=== PATIENT | female | born 1955 | race Caucasian/White ===

== ENCOUNTER → 2017-06-30 | Outpatient (CLI) | payer BC ==
--- NOTE | 2017-07-01 08:35 | PN ---
DATE OF SERVICE: 06/30/2017 A 62-year-old lady who had been followed in the sleep center for treatment of obstructive sleep apnea-hypopnea syndrome. Patient continued to use her CPAP equipment every night taking it with her ( ) or during the ( ). No problem with the use of her equipment. No problem with the mask. The patient has problem to receive her supplies. I checked her CPAP unit. CPAP pressure is 13 cm of water. Reading from the machine showed that patient is using it 100% of the time more than 4 hours. Average usage 8 hours. Leak is 18 L per minute, which is acceptable. Apnea- hypopnea index reading from the machine is only 1.4, which is perfect. [place] sleepiness scale today is 13. MEDICATIONS: Vitamin D, CQ 10, [place] and fish oil supplements. PHYSICAL EXAMINATION: During physical exam, patient in no distress. VITAL SIGNS: BP 112/63, HR 72, RR 16, height 5 feet 5 inches, weight is 251, BMI 41.6, temperature 97.4, oxygen saturation at room air 95%. Patient lost 6 pounds since titration 2 years ago. HEENT: PERRLA. EOMI. Evaluation of the oropharynx showed low position of soft palate. NECK: Supple. No JVD. Thyroid is not palpable. LUNGS: Clear to percussion and to auscultation. Good air exchange. No wheezing or rhonchi. HEART: S1, S2, regular. No murmurs, gallops or rubs. ABDOMEN: Obese. EXTREMITIES: No clubbing or cyanosis. PRESCRIPTIONIST: Awake, alert and oriented x3. Cranial nerves 2 to 7 intact. There is no fasciculation or atrophy noted. No focal deficits observed. IMPRESSION: 1. Obstructive sleep apnea-hypopnea syndrome on control with CPAP at 13 cm of water. 2. Obesity. Patient lost 6 pounds. 3. Allergy. 4. Back problem. 5. Left knee problems. PLAN: 1. Continue treatment with CPAP every night for the whole night. Patient benefiting from treatment. 2. Prescription for all necessary CPAP supplies including nasal mask, tube, filters. Possibly to change heater chamber. 3. Sleep hygiene with regular time in bed for at least 8 hours. 4. No driving if feeling any sleepiness. Thank you very much for allowing me to participate in the management of your patient. Sincerely, Mervin Connor MD, PhD, FAASM Diplomat of [place] [employer] Sleep Medicine Board by [place] [employer] [place] [employer] Elastic Yarn Twister of [facility] [place] T[place]
== END | disposition home or self-care (01) ==
LOC: SLEEP 16:05
PROVIDERS: ATTEND Internal Medicine
DX: G47.33 Obstructive sleep apnea (adult) (pediatric) (principal); E66.9 Obesity, unspecified; T78.40XA Allergy, unspecified, initial encounter

== ENCOUNTER 2017-09-05 14:59 | Emergency (ER) | payer BC ==
--- NOTE | 2017-09-05 15:46 | ED ---
General Adult HPI - General Chief complaint: Chest Pain Stated complaint: Dr Sent Time Seen by Provider: 09/05/17 15:29 Source: patient, RN notes reviewed, old records reviewed Mode of arrival: ambulatory Limitations: no limitations - History of Present Illness Initial comments: This is a 62-year-old female to the ER for evaluation. This patient presents for evaluation regarding chest pain left-sided chest pain severe back. Patient has had pain for a week. Patient denies cardiac risk factors. Patient does admit to history of travel, long drives. Patient has gone through some physical therapy to help with her pain with no significant change in her symptoms. No modifying factors for pain at home - Related Data Home Medications Medication Instructions Recorded Confirmed Cholecalciferol [Vitamin D3] 1,000 unit PO DAILY 09/05/17 09/05/17 Joint Supplement 1 tab PO DAILY 09/05/17 09/05/17 Lurong Otc 1 tab PO DAILY 09/05/17 09/05/17 Menthol Sports Rub 1 applic TOPICAL DAILY PRN 09/05/17 09/05/17 [place]-3 Fatty Acids [[place]-3] 1,000 mg PO DAILY 09/05/17 09/05/17 Potassium Plus 1 tab PO DAILY 09/05/17 09/05/17 Vitamin C/Biotin [Hair, Skin and 1 tab PO DAILY 09/05/17 09/05/17 Nails] Allergies Allergy/AdvReac Type Severity Reaction Status Date / Time diphenhydramine HCl Allergy muscle Verified 09/05/17 15:44 [From Benadryl] twitching, rash, anxious kiwi Allergy Swelling Verified 09/05/17 15:44 latex Allergy Rash/Hives Verified 09/05/17 15:44 strawberry Allergy throat Verified 09/05/17 15:44 delbert Review of Systems ROS Statement: Those systems with pertinent positive or pertinent negative responses have been documented in the HPI. ROS Other: All systems not noted in ROS Statement are negative. Past Medical History Past Medical History: Hyperlipidemia, Pneumonia, Sleep Apnea/CPAP/BIPAP Additional Past Medical History / Comment(s): hx migraine, epigastric pain History of Any Multi-Drug Resistant Organisms: None Reported Past Surgical History: Tubal Ligation, Uterine Ablation Additional Past Surgical History / Comment(s): surgery fx left tibia/fibia, plastic surgery on face, mult D & C, Past Anesthesia/Blood Transfusion Reactions: Previous Problems w/ Anesthesia Additional Past Anesthesia/Blood Transfusion Reaction / Comment(s): "a while to come out one time" Past Psychological History: No Psychological Hx Reported Smoking Status: Former smoker Past Alcohol Use History: Rare Past Drug Use History: None Reported - Past Family History Mother Family Medical History: No Reported History General Exam Limitations: no limitations General appearance: alert, in no apparent distress Head exam: Present: atraumatic, normocephalic, normal inspection Eye exam: Present: normal appearance, PERRL, EOMI. Absent: scleral icterus, conjunctival injection, periorbital swelling ENT exam: Present: normal exam, mucous membranes moist Neck exam: Present: normal inspection. Absent: tenderness, meningismus, lymphadenopathy Respiratory exam: Present: normal lung sounds bilaterally. Absent: respiratory distress, wheezes, rales, rhonchi, stridor Cardiovascular Exam: Present: regular rate, normal rhythm, normal heart sounds. Absent: systolic murmur, diastolic murmur, rubs, gallop, clicks GI/Abdominal exam: Present: soft, normal bowel sounds. Absent: distended, tenderness, guarding, rebound, rigid Extremities exam: Present: normal inspection, full ROM, normal capillary refill. Absent: tenderness, pedal edema, joint swelling, calf tenderness Back exam: Present: normal inspection Neurological exam: Present: alert, oriented X3, CN II-XII intact Psychiatric exam: Present: normal affect, normal mood Skin exam: Present: warm, dry, intact, normal color. Absent: rash Course Vital Signs 09/05/17 09/05/17 09/05/17 15:20 15:55 17:00 Temperature 97.5 F L Pulse Rate 70 70 69 Respiratory 18 16 18 Rate Blood Pressure 182/86 143/70 166/78 O2 Sat by Pulse 97 96 94 L Oximetry - Reevaluation(s) Reevaluation #1: 09/05/17 17:34 Discussed results of patient's findings with patient, questions are answered Medical Decision Making - Medical Decision Making 62. ER for evaluation of chest pain. Back pain severe stabbing back pain. CT is negative. EKG is normal, Troponin Level is normal patient can be discharged home - Lab Data Result diagrams: 09/05/17 15:57 09/05/17 15:57 Lab Results 10/09/05/17 09/05/17 Range/Units 15:57 15:57 15:57 WBC (3.8-10.6) k/uL RBC (3.80-5.40) m/uL Hgb (11.4-16.0) gm/dL Hct (34.0-46.0) % MCV (80.0-100.0) fL MCH (25.0-35.0) pg MCHC (31.0-37.0) g/dL RDW (11.5-15.5) % Plt Count (150-450) k/uL Neutrophils % % Lymphocytes % % Monocytes % % Eosinophils % % Basophils % % Neutrophils # (1.3-7.7) k/uL Lymphocytes # (1.0-4.8) k/uL Monocytes # (0-1.0) k/uL Eosinophils # (0-0.7) k/uL Basophils # (0-0.2) k/uL PT 10.4 (9.0-12.0) sec INR 1.0 (<1.2) APTT 27.6 (22.0-30.0) sec D-Dimer 0.42 (<0.60) mg/L FEU Sodium 141 (137-145) mmol/L Potassium 4.6 (3.5-5.1) mmol/L Chloride 105 (98-107) mmol/L Carbon Dioxide 23 (22-30) mmol/L Anion Gap 13 mmol/L BUN 13 (7-17) mg/dL Creatinine 0.84 (0.52-1.04) mg/dL Est GFR (MDRD) Af Amer >60 (>60 ml/min/1.73 sqM) Est GFR (MDRD) Non-Af >60 (>60 ml/min/1.73 sqM) Glucose 85 (74-99) mg/dL Calcium 9.2 (8.4-10.2) mg/dL Magnesium 1.9 (1.6-2.3) mg/dL Total Bilirubin 0.6 (0.2-1.3) mg/dL AST 41 H (14-36) U/L ALT 42 (9-52) U/L Alkaline Phosphatase 75 (38-126) U/L Total Creatine Kinase (30-135) U/L CK-MB (CK-2) (0.0-2.4) ng/mL CK-MB (CK-2) Rel Index Troponin I (0.000-0.034) ng/mL NT-Pro-B Natriuret Pep 19 pg/mL Total Protein 7.8 (6.3-8.2) g/dL Albumin 4.4 (3.5-5.0) g/dL Lipase 105 (23-300) U/L 09/05/17 09/05/17 Range/Units 15:57 15:57 WBC 9.7 (3.8-10.6) k/uL RBC 5.09 (3.80-5.40) m/uL Hgb 14.6 (11.4-16.0) gm/dL Hct 45.0 (34.0-46.0) % MCV 88.5 (80.0-100.0) fL MCH 28.7 (25.0-35.0) pg MCHC 32.4 (31.0-37.0) g/dL RDW 12.9 (11.5-15.5) % Plt Count 305 (150-450) k/uL Neutrophils % 52 % Lymphocytes % 35 % Monocytes % 7 % Eosinophils % 3 % Basophils % 1 % Neutrophils # 5.1 (1.3-7.7) k/uL Lymphocytes # 3.4 (1.0-4.8) k/uL Monocytes # 0.7 (0-1.0) k/uL Eosinophils # 0.3 (0-0.7) k/uL Basophils # 0.1 (0-0.2) k/uL PT (9.0-12.0) sec INR (<1.2) APTT (22.0-30.0) sec D-Dimer (<0.60) mg/L FEU Sodium (137-145) mmol/L Potassium (3.5-5.1) mmol/L Chloride (98-107) mmol/L Carbon Dioxide (22-30) mmol/L Anion Gap mmol/L BUN (7-17) mg/dL Creatinine (0.52-1.04) mg/dL Est GFR (MDRD) Af Amer (>60 ml/min/1.73 sqM) Est GFR (MDRD) Non-Af (>60 ml/min/1.73 sqM) Glucose (74-99) mg/dL Calcium (8.4-10.2) mg/dL Magnesium (1.6-2.3) mg/dL Total Bilirubin (0.2-1.3) mg/dL AST (14-36) U/L ALT (9-52) U/L Alkaline Phosphatase (38-126) U/L Total Creatine Kinase 334 H (30-135) U/L CK-MB (CK-2) 2.9 H* (0.0-2.4) ng/mL CK-MB (CK-2) Rel Index 0.9 Troponin I <0.012 (0.000-0.034) ng/mL NT-Pro-B Natriuret Pep pg/mL Total Protein (6.3-8.2) g/dL Albumin (3.5-5.0) g/dL Lipase (23-300) U/L - Radiology Data Radiology results: report reviewed (CTA chest was negative for acute disease), image reviewed Disposition Clinical Impression: Chest pain Disposition: HOME SELF-CARE Condition: Good Instructions: Chest Pain (ED) Referrals: Brad Maciel MD [Primary Care Provider] - 1-2 days
[2017-09-05] MEDS ORDERED: RX INFO: IV CONTRAST WAS GIVEN 1 EACH MISC MISCELLANE PRN (16:00)
[2017-09-05 16:07] LABS: Basophils # (A) 0.1 k/uL (0-0.2); Basophils % (A) 1 %; CH 28.7; CHCM 32.5; Eosinophils # (A) 0.3 k/uL (0-0.7); Eosinophils % (A) 3 %; HDW 2.33; HGB 14.6 gm/dL (11.4-16.0); Luc # (Auto) 0.18; Luc % (Auto) 2; Lymphocytes # (A) 3.4 k/uL (1.0-4.8); Lymphocytes % (A) 35 %; MCH 28.7 pg (25.0-35.0); MCHC 32.4 g/dL (31.0-37.0); MCV 88.5 fL (80.0-100.0); Mean Platelet Volume 7.4; Monocytes # (A) 0.7 k/uL (0-1.0); Monocytes % (A) 7 %; Neutrophils # (A) 5.1 k/uL (1.3-7.7); Neutrophils % (A) 52 %; RBC 5.09 m/uL (3.80-5.40); RDW 12.9 % (11.5-15.5); WBC 9.7 k/uL (3.8-10.6); WBC (Perox) 9.18
--- NOTE | 2017-09-05 16:10 | XR ---
EXAMINATION TYPE: XR chest 2V DATE OF EXAM: 09/05/2017 COMPARISON: NONE HISTORY: Chest pain, history of pneumonia. TECHNIQUE: Frontal and lateral views of the chest are obtained. FINDINGS: There is chronic parenchymal change without suspicious focal air space opacity, pleural ef fusion, or pneumothorax seen. The cardiac silhouette size is within normal limits. The osseous str uctures are somewhat demineralized. IMPRESSION: No acute cardiopulmonary process.
[2017-09-05 16:16] LABS: ALT 42 U/L (9-52); AST 41 U/L (14-36); Alkaline Phosphatase 75 U/L (38-126); Anion Gap 13 mmol/L; Blood Urea Nitrogen 13 mg/dL (7-17); Calcium 9.2 mg/dL (8.4-10.2); Carbon Dioxide 23 mmol/L (22-30); Chloride 105 mmol/L (98-107); Glucose 85 mg/dL (74-99); Magnesium 1.9 mg/dL (1.6-2.3); Non-African American GFR(MDRD) >60 (>60 ml/min/1.73 sqM); Potassium 4.6 mmol/L (3.5-5.1); Sodium 141 mmol/L (137-145); Total Bilirubin 0.6 mg/dL (0.2-1.3); Total Protein 7.8 g/dL (6.3-8.2)
[2017-09-05 16:21] LABS: Partial Thromboplastin Time 27.6 sec (22.0-30.0); Prothrombin Time 10.4 sec (9.0-12.0)
[2017-09-05 16:36] LABS: Creatine Kinase 334 U/L (30-135)
[2017-09-05 16:50] LABS: Troponin I <0.012 ng/mL (0.000-0.034)
[2017-09-05 16:57] LABS: Creatine Kinase MB 2.9 ng/mL (0.0-2.4)
--- NOTE | 2017-09-05 17:00 | CT ---
EXAMINATION TYPE: CT angio chest DATE OF EXAM: 09/05/2017 4:38 PM COMPARISON: NONE HISTORY: Left side chest pain x1 week. CT DLP: 642 mGycm Automated exposure control for dose reduction was used. CONTRAST: CTA scan of the thorax is performed with IV Contrast, patient injected with 80 mL of Omnipaque 350, p ulmonary embolism protocol. There are 3-D post processed images.. FINDINGS: There is minimal atheromatous change in the thoracic aorta. There is no evidence of aneurysm or disse ction. The lungs are clear of consolidation. There is no evidence of a pulmonary mass. There is no pleural e ffusion. I see no filling defects in the pulmonary arteries. There is no mediastinal adenopathy. Ther e is a 1.5 cm right bronchial lymph node. There is no pericardial effusion. There is no pleural effus ion. There is hypertrophic spurring in the thoracic spine. IMPRESSION: NO EVIDENCE OF PULMONARY EMBOLISM. SINGLE RIGHT BRONCHIAL LYMPH NODE OF UNCERTAIN SIGNIFICANCE. SPOND YLOTIC CHANGES IN THE THORACIC SPINE.
[2017-09-05 17:09] VITALS: RESP 18
[2017-09-05] MEDS ORDERED: IBUPROFEN 800 MG TAB PO STA (17:11)
[2017-09-05 17:48] VITALS: BP 171/95; PULSE 71; TEMP 97.8
== END 2017-09-05 17:48 | disposition home or self-care (01) ==
LOC: EC 14:59
DX: R07.9 Chest pain, unspecified (principal); M54.9 Dorsalgia, unspecified; Z87.891 Personal history of nicotine dependence; Z79.899 Other long term (current) drug therapy; Z88.8 Allergy status to other drugs, medicaments and biological substances; Z91.018 Allergy to other foods; Z91.040 Latex allergy status
CPT/HCPCS: 99285; 36415; 93005; 85379; 83880; 80053; 82550; 82553; 83690; 83735; 84484; 85025; 85610; 85730; 71020; 71275; Q9967

== ENCOUNTER → 2018-07-19 | Outpatient (CLI) | payer BC ==
--- NOTE | 2018-07-20 14:06 | EST ---
EXERCISE STRESS AGE: 63 SEX: F HT: 55" WT: 255 PROTOCOL: Moses Stress Test STAGE: I DURATION OF EXERCISE: 4:35 HEART RATE REST: 94 BLOOD PRESSURE REST: 148/75 MAXIMUM HEART RATE ACHIEVED: 145 MAXIMUM BLOOD PRESSURE: 239/82 85% MPHR: 134 100% MPHR: 158 METS: 4.4 INDICATIONS: Chest pain. CLINICAL INFORMATION: Patient was exercised for a total period of 4 minutes and 30 seconds. Peak heart rate of 145 was achieved. Maximum blood pressure of 239/82 mmHg is noted. Resting EKG shows normal sinus rhythm with normal CO interval and QRS duration and normal ST-T waves. No ST-segment depression suggestive of ischemia is noted. FINAL IMPRESSION: 1. This exercise test is not suggestive of ischemia. 2. Patient's exercise tolerance is normal. 3. Patient developed systolic hypertension during exercise. MMODL / IJN: [id number] /
== END | disposition home or self-care (01) ==
LOC: RADNMMAIN 11:09
PROVIDERS: ATTEND Family Medicine
DX: I10 Essential (primary) hypertension (principal); R07.89 Other chest pain
CPT/HCPCS: 93017

== ENCOUNTER → 2018-08-10 | Outpatient (CLI) | payer BC ==
--- NOTE | 2018-08-10 11:36 | SFUN ---
SLEEP CENTER FOLLOW UP NOTE DATE OF SERVICE: 08/10/2018 This 63-year-old lady has been followed in sleep center for treatment of obstructive sleep apnea-hypopnea syndrome. Patient is successfully continuing to use her equipment every night. According to her, she cannot sleep without CPAP machine. She does have some problems related to her nasal mask. Sometimes she has a leak from the nasal mask to her eyes area and this is Mirage Standard FX mask. I checked her CPAP unit. CPAP pressure is 13 cm of water. Usage is 100% of the time more than 4 hours. Average usage is 7.9 hours. Leak is only 11 L/minute, which is normal. Apnea-hypopnea index only 0.9, which is perfect. [place] Sleepiness Scale is 8, which is in normal range. MEDICATIONS: Vitamin D, [place] fish oil. Not any prescribed medications. PHYSICAL EXAMINATION: Patient in no distress. VITAL SIGNS: BP 108/70, HR 72, RR 14, height 5 feet 4-1/2 inches, weight 257.4, body mass index 44.1, temperature 98.6, oxygen saturation room air 97%. HEENT: PERRLA, EOMI. Oropharynx extremely low position of soft palate. NECK: Supple, no JVD. Thyroid is not palpable. LUNGS: Clear to percussion and to auscultation. Good air exchange. No wheezing or rhonchi. HEART: S1, S2 regular. No murmurs, gallops, or rubs. ABDOMEN: Obese. EXTREMITIES: No clubbing or cyanosis. PRIVATE INVESTIGATOR SURVEILLANCE: Awake, alert, and oriented X3. Cranial nerves 2 to 7 intact. There is no fasciculation or atrophy. noted. No focal deficits observed. IMPRESSION: 1. Obstructive sleep apnea-hypopnea syndrome, on full control with CPAP with a pressure of 13 cm of water. Patient demonstrated 100% compliance with treatment benefitting from treatment. 2. Obesity. 3. Allergy. 4. Back problems. 5. Left knee problems. PLAN: 1. patient with different nasal mask AirFit N20 medium size and this looks like this mask fit patient well. I will write prescription for this type of mask. 2. Patient will continue to use her CPAP equipment every night for the whole night. 3. Losing weight. 4. Sleep hygiene with regular time in bed for at least 8 hours. 5. No driving if feeling any sleepiness. 6. Prescription for all necessary CPAP supplies. We will maintain. 7. Follow-up visit in one year or earlier if patient has any problems. Thank you very much for allowing me to participate in management of your patient. Sincerely, Mervin Connor MD, PhD, FAASM Diplomat of [place] [employer] [place] [employer] Rn Patient Care of [facility] [place] MMODL / IJN: [id number] /
== END | disposition home or self-care (01) ==
LOC: SLEEP 10:46
PROVIDERS: ATTEND Internal Medicine
DX: G47.33 Obstructive sleep apnea (adult) (pediatric) (principal); E66.9 Obesity, unspecified; T78.40XA Allergy, unspecified, initial encounter; M53.9 Dorsopathy, unspecified; M25.862 Other specified joint disorders, left knee; Z99.89 Dependence on other enabling machines and devices; Z68.41 Body mass index [BMI] 40.0-44.9, adult

== ENCOUNTER → 2019-06-28 | Outpatient (CLI) | payer BC ==
--- NOTE | 2019-06-28 14:43 | SFUN ---
SLEEP CENTER FOLLOW UP NOTE DATE OF SERVICE: 06/28/2019 A 64-year-old lady who has been followed in the Sleep Center for treatment of obstructive sleep apnea-hypopnea syndrome. Patient continued to use her CPAP equipment every night for the whole night. No snoring with the machine. [place] Sleepiness Scale today is increased to 16. During the last year, she had a lot of stress related to health and her family with problems in her family, I checked her CPAP unit, usage is every night and 29/30 nights for last month for more than 4 hours with average usage is 7.7 hours per night. CPAP pressure is 13 cm of water. Leak is 12 L/minute, which is borderline. Apnea-hypopnea index 21.1, which is absolutely normal. MEDICATIONS: Vitamin D, fish oil. PHYSICAL EXAM: Patient in no distress. BP 142/78, HR 78, RR 16, height 5, 4-1/2, weight 261. For the last year, patient lost about 20 pounds but then again increase her weight back, presently 4 pounds more. Temperature 97.4, oxygen, saturation at room air 94%. OROPHARYNX: Extremely low position of soft palate. Mallampati 4. ABDOMEN: Obese. Neck Supple, no JVD. Thyroid is not palpable. LUNGS Clear to percussion and to auscultation. Good air exchange. No wheezing or rhonchi. HEART S1, S2 regular. No murmurs, gallops, or rubs. EXTREMITIES No clubbing or cyanosis. ROADWAY DESIGNER Awake, alert, and oriented X3. Cranial nerves 2 to 7 intact. There is no fasciculation or atrophy. noted. No focal deficits observed. IMPRESSION: 1. Obstructive sleep apnea-hypopnea syndrome, on full control with CPAP with a pressure of 13 cm of water. Patient demonstrated 100% compliance with treatment, benefitting from treatment. 2. Back problems. 3. Obesity. 4. Allergy. 5. Left knee problems. PLAN: 1. Patient will continue to use CPAP equipment every night for the whole night. 2. I will maintain all necessary prescriptions for mask, tube, filters. 3. Losing weight. 4. Sleep hygiene with regular time in bed for at least 8 hours. 5. No driving if feeling sleepiness. 6. Followup visit in 1 year or earlier if patient has any problems. Thank you very much for allowing me to participate in the management of the patient. Sincerely, Mervin Connor MD, PhD, FAASM Diplomat of [place] [employer] [place] [employer] Math And Science Instructor of [facility] [place] MMMADELYN / STEPHANIE: [id number] /
== END | disposition home or self-care (01) ==
LOC: SLEEP 13:50
PROVIDERS: ATTEND Internal Medicine
DX: G47.33 Obstructive sleep apnea (adult) (pediatric) (principal); M53.9 Dorsopathy, unspecified; E66.9 Obesity, unspecified; T78.40XA Allergy, unspecified, initial encounter; M25.862 Other specified joint disorders, left knee; Z99.89 Dependence on other enabling machines and devices

== ENCOUNTER → 2020-07-23 | Outpatient (CLI) | payer BC ==
--- NOTE | 2020-07-23 11:59 | US ---
EXAMINATION TYPE: US pelvis complete transvag DATE OF EXAM: 07/23/2020 COMPARISON: NONE CLINICAL HISTORY: 65-year-old female R10.2 Pelvic and Perineal Pain. Generalized pain TECHNIQUE: Transabdominal sonographic images of the pelvis were acquired. Transvaginal sonographic i mages were medically necessary to better assess the following anatomy: Ovaries, endometrium Date of LMP: RESIDENTIAL CARPENTER, FINDINGS: EXAM MEASUREMENTS: Uterus: 7.3 x 4.8 x 3.4 cm Endometrial Stripe: 0.4 cm Right Ovary: 3.3 x 1.7 x 2.2 cm 1. Uterus: Retroverted with Heterogenous myometrium. Left focal lesions seen. 1- Left- 3.7 x 4.8 x 4.1 cm 2- left fundal - 1.9 x 2.7 x 1.9 cm 2. Endometrium: Mild fluid within the uterine cavity. The stripe is acceptable given postmenopausal status. 3. Right Ovary: Cystic lesion seen -3.3 x 1.8 x 2.1 with small possible cystic lesion seen within - 1.0 x 1.0 x 1.1 cm 4. Left Ovary: Obscured by overlying bowel gas 5. Bilateral Adnexa: Some fluid-filled peristalsing bowel seen 6. Posterior cul-de-sac: no free fluid Cervix- nabothian cysts IMPRESSION: 1. Retroverted and heterogeneous uterus, likely diffuse small fibroid change. Focal fibroids on the l eft measure up to 4.8 and 2.7 cm. 2. Mild fluid within the uterine cavity. However, the endometrial stripe is normal for postmenopausal female for mellitus. Consider follow-up in 3 months to reassess. 3. Possible 3.3 cm complex cystic lesion of the right ovary. This should also be reassessed at follow -up. If the finding persists, MRI may be needed to better characterize. 4. Unable to visualize the left ovary.
== END | disposition home or self-care (01) ==
LOC: RADUSWWP 10:51
PROVIDERS: ATTEND Family Medicine
DX: D25.9 Leiomyoma of uterus, unspecified (principal); N85.4 Malposition of uterus
CPT/HCPCS: 76830; 76856

== ENCOUNTER → 2021-03-19 | Outpatient (CLI) | payer BC ==
--- NOTE | 2021-04-10 06:20 | SFUN ---
SLEEP CENTER FOLLOW UP NOTE DATE OF SERVICE: 04/08/2021 HISTORY OF PRESENT ILLNESS: This 65-year-old lady has been followed in the Sleep Center for treatment of obstructive sleep apnea-hypopnea syndrome. Patient continued to use her CPAP equipment every night for the whole night. No snoring with the machine. [place] Sleepiness Scale is slightly increased to 11. I checked CPAP unit. The CPAP pressure is 13 cm of water. Usage is 30/30 nights, average 8 hours per night. Leak is 18 L/minute. Apnea-hypopnea index is 1.1. The patient is using an AirFit and 20 medium mask. PHYSICAL EXAMINATION: GENERAL: Patient in no distress. VITAL SIGNS: BP 126/76, HR 68, RR 16, height 5 feet 4-1/2 inches, weight 254.6 pounds, temperature 96.4, oxygen saturation on room air 97%. HEENT: PERRLA, EOMI, evaluation of oropharynx showed tongue protrudes midline. Extremely low position of soft palate, Mallampati IV. NECK: Supple, no JVD. Thyroid is not palpable. LUNGS: Clear to percussion and to auscultation. Good air exchange. No wheezing or rhonchi. HEART: S1, S2 regular. No murmurs, gallops, or rubs. ABDOMEN: Obese, soft and nontender. Bowel sounds are present. No organomegaly appreciated. EXTREMITIES: No clubbing or cyanosis. CROP NUTRITION SCIENTIST: Awake, alert, and oriented X3. Cranial nerves 2 to 7 intact. There is no fasciculation or atrophy. noted. No focal deficits observed. IMPRESSION: 1. Obstructive sleep apnea-hypopnea syndrome. Patient demonstrated 100% compliance with treatment and benefitting from treatment. 2. Patient has some problems with the CPAP unit and the unit needs to be replaced. 3. Back problems. 4. Obesity. 5. Allergies. 6. Left knee problems. PLAN: 1. Prescription to replaced CPAP unit to unit with automatic regimen. Range of the pressure 5-15. 2. Patient will continue to use PAP equipment every night for the whole night. 3. Sleep hygiene with regular time in bed for at least 7-1/2 to 8 hours. 4. Precautions related to driving. No driving if feeling sleepiness. 5. I will maintain all necessary prescription for PAP supplies including mask, tube, filters. 6. Watching weight. 7. Follow-up visit in 6 months or earlier if patient has any problems. 8. Followup visit after the patient gets her new machine to evaluate her clinical response on treatment, compliance with treatment and make any necessary adjustments related to mask fitting, pressure and humidification. I spent with the patient and documentation more than 30 minutes. Thank you very much for allowing me to participate in management of your patient. Sincerely, Mervin Connor MD, PhD, FAASM Diplomat of [place] [employer] [place] [employer] Correctional Supervisor of [facility] [place] MMODL / IJN: [id number] /
== END ==
LOC: SLEEP 16:43
PROVIDERS: ATTEND Internal Medicine
DX: G47.33 Obstructive sleep apnea (adult) (pediatric) (principal); M53.80 Other specified dorsopathies, site unspecified; E66.9 Obesity, unspecified; T78.40XA Allergy, unspecified, initial encounter; Z99.81 Dependence on supplemental oxygen; Z91.040 Latex allergy status; Z91.018 Allergy to other foods; Z88.8 Allergy status to other drugs, medicaments and biological substances; Z87.891 Personal history of nicotine dependence

== ENCOUNTER → 2021-05-20 | Outpatient (CLI) | payer BC ==
--- NOTE | 2021-05-20 21:03 | SFUN ---
SLEEP CENTER FOLLOW UP NOTE DATE OF SERVICE: 05/20/2021 65-year-old lady has been followed in Sleep Center for treatment of obstructive sleep apnea-hypopnea syndrome. I saw patient about 2 months ago, at that time, it was recommended to replace CPAP unit, but CPAP unit was not replaced because of some issues related to changing of her insurance. Patient continued to use her CPAP equipment every night for the whole night. [place] Sleepiness Scale is 11 today, which is slightly increased. I checked her CPAP unit. Cover for air filter is broken. The machine is old. CPAP pressure is 13 cm of water, usage 30/30 nights for more than 4 hours, average 8.6 hours per night. Leak is borderline 17 L/minute. Apnea-hypopnea index was 1.3, which is perfect. The patient is using AirFit N20 nasal mask. MEDICATIONS: None. PHYSICAL EXAM: BP 155/105, HR 90, RR 15, height 5 feet 7 inches, weight 257, body mass index 44.1, temperature 98.6, oxygen saturation at room air 96%. Oropharynx extremely low position of soft palate. Mallampati IV. NECK: Supple, no JVD. Thyroid is not palpable. LUNGS: Clear to percussion and to auscultation. Good air exchange. No wheezing or rhonchi. HEART: S1, S2 regular. No murmurs, gallops, or rubs. ABDOMEN: Obese. Soft and nontender. Bowel sounds are present. No organomegaly appreciated. EXTREMITIES: No clubbing or cyanosis. PROPERTY HANDLER: Awake, alert, and oriented X3. Cranial nerves 2 to 7 intact. There is no fasciculation or atrophy. noted. No focal deficits observed. IMPRESSION: 1. Obstructive sleep apnea-hypopnea syndrome. The patient demonstrated 100% compliance with treatment benefitting from treatment. CPAP unit is old. Air filter cover broken. Some part of machine wall is broken. 2. Obesity. 3. Back problems. 4. Allergies. 5. Left knee problems. PLAN: 1. Replace CPAP unit. 2. Patient will continue to use PAP equipment every night for the whole night. 3. Sleep hygiene with regular time in bed for at least 7-1/2 to 8 hours. 4. Precautions related to driving. No driving if feeling sleepiness. 5. I will maintain all necessary prescription for PAP supplies including mask, tube, filters. 6. Watching weight. 7. Follow-up visit in 30-90 days after patient will receive new CPAP machine to evaluate clinical response on treatment, compliance with treatment and make any necessary adjustments related to mask, fitting pressure and humidification. Thank you very much for allowing me to participate in management of your patient. Sincerely, Mervin Connor MD, PhD, FAASM Diplomat of [employer] Sleep Medicine Board of [employer] of [employer] Medicine Fire Hydrant Mechanic of [facility] [place]. MMODL / IJN: [id number] /
== END ==
LOC: SLEEP 13:06
PROVIDERS: ATTEND Internal Medicine
DX: G47.33 Obstructive sleep apnea (adult) (pediatric) (principal); E66.9 Obesity, unspecified; T78.40XA Allergy, unspecified, initial encounter; M53.80 Other specified dorsopathies, site unspecified; M25.869 Other specified joint disorders, unspecified knee; Z68.41 Body mass index [BMI] 40.0-44.9, adult; Z99.89 Dependence on other enabling machines and devices

== ENCOUNTER → 2021-10-22 | Outpatient (CLI) | payer BC ==
--- NOTE | 2021-10-22 11:52 | SFUN ---
SLEEP CENTER FOLLOW UP NOTE DATE OF SERVICE: 10/22/2021 66-year-old lady has been followed in Sleep Center for treatment of obstructive sleep apnea-hypopnea syndrome. The patient recently received new CPAP unit and this is appointment to check her compliance with therapy. Patient continues to use her CPAP equipment every night for the whole night. Cannot sleep without machine. No snoring with the machine. [place] Sleepiness Scale today is 9 which is in normal range. Reading from the machine showed that she is using it every night around 5 to 6 hours per night and apnea-hypopnea index is totally normal at 0.5. The patient received new ResMed unit and she likes it. The patient did not receive heated tube using regular tube at the present time. MEDICATIONS: None. PHYSICAL EXAMINATION: GENERAL: Patient in no distress. BP 152/69, HR 77, RR 15, height 5 feet 4-1/4 inches, weight 270.6 pounds, body mass index 46. Temperature 97, oxygen saturation at room air 96%. Oropharynx: Extremely low position of soft palate, Mallampati 4. NECK: Supple, no JVD. Thyroid is not palpable. LUNGS: Clear to percussion and to auscultation. Good air exchange. No wheezing or rhonchi. HEART: S1, S2 regular. No murmurs, gallops, or rubs. ABDOMEN: Obese. Soft and nontender. Bowel sounds are present. No organomegaly appreciated. EXTREMITIES: No clubbing or cyanosis. REGIONAL BUSINESS DEVELOPMENT MANAGER: Awake, alert, and oriented X3. Cranial nerves 2 to 7 intact. There is no fasciculation or atrophy. noted. No focal deficits observed. IMPRESSION: 1. Obstructive sleep apnea-hypopnea syndrome. Patient demonstrated great compliance while using her new CPAP unit, benefitting from treatment. 2. Obesity. 3. Back problems. 4. Left knee problems. 5. Allergies. PLAN: 1. Patient will continue to use PAP equipment every night for the whole night. 2. Sleep hygiene with regular time in bed for at least 7-1/2 to 8 hours. 3. Precautions related to driving. No driving if feeling sleepiness. 4. I will maintain all necessary prescription for PAP supplies including mask, tube, filters. 5. Watching weight. 6. Follow-up visit in 6 months or earlier if patient has any problems. Thank you very much for allowing me to participate in management of your patient. Sincerely, Mervin Stefadu, MD, PhD, FAASM Diplomat of [employer] Sleep Medicine Board of [employer] of Internal Medicine Financial Internship of [facility] [place] SARAH / STEPHANIE: [id number] /
== END ==
LOC: SLEEP 10:15
PROVIDERS: ATTEND Internal Medicine
DX: G47.33 Obstructive sleep apnea (adult) (pediatric) (principal); E66.9 Obesity, unspecified; M53.80 Other specified dorsopathies, site unspecified; M53.82 Other specified dorsopathies, cervical region; T78.40XA Allergy, unspecified, initial encounter; Z99.89 Dependence on other enabling machines and devices; Z68.42 Body mass index [BMI] 45.0-49.9, adult; Z91.040 Latex allergy status; Z91.018 Allergy to other foods; Z88.8 Allergy status to other drugs, medicaments and biological substances; Z87.891 Personal history of nicotine dependence

== ENCOUNTER → 2023-02-23 | Outpatient (CLI) | payer BC, MEDICARE ==
--- NOTE | 2023-02-23 14:01 | P.PN ---
Subjective DATE: 02/23/2023 FOLLOW UP VISIT. Patient with obstructive sleep apnea hypopnea syndrome return to sleep center for follow-up visit. Information from previous visit have been reviewed. Patient is using PAP equipment every night for the whole night, getting PAP supplies in time. Patient did had some problems with her CPAP, with the d iscomfort in nature nose and to somebody discharges from the nose. Depression CPAP unit was decreased to 8 cm of water and with that regimen of pressure patient feels well. The patient does not have significant problems with the mask, PAP unit and humidification. [place] sleepiness scale is 2, which is normal. I checked information from PAP unit. PAP unit pressure 8 cm H2O. Usage is 100 % for more then 4 hours, average 7.25 hours per night. Leak is 6.8 l/m, which is in acceptable range. Apnea Hypopnea Index is 2.1, which is normal. MEDICATIONS: None During physical exam: GENERAL: A pleasant patient without any distress. VITAL SIGNS: BP 125/78, HR 76, RR 12 , weight 214, temperature 98.6, oxygen saturation at room air 97 % . HEENT: PERRLA, EOMI.low position of soft palate, Mallapati 4 . NECK: Supple. No JVD. LUNGS: Clear to percussion and to auscultation. Good air exchange. No wheezing or rhonchi. HEART: S1, S2 regular. ABDOMEN: Soft and nontender. EXTREMITIES: No clubbing or cyanosis. PARCEL POST CARRIER: Awake, alert, and oriented x3. No focal deficit. Impressions: 1. Obstructive sleep apnea-hypopnea syndrome. Patient demonstrated great compliance with treatment, benefiting from treatment. 2. Mild obesity body mass index 36.7, patient lost 55 pounds since previous visit. 3. Back problems. 4. Left knee problems. 5. ALLERGIES. Plan: 1. Continue using PAP equipment every night for the whole night. 2. To change air filter at least 1-2 times per month. 3. PAP unit should stay lower then position of the head. 4. Advised patient to remove all remaining water from humidifier canister daily and make it dry after each usage. Refill canister with fresh distilled water before each usage. 5. Sleep hygiene with regular time in bed for at least 8 hours. 6. Precautions related to driving. No driving if feel any sleepiness. 7. I will maintain prescription for PAP supplies including mask, tube, filters. 8. Follow up visit in 6 months or earlier if patient has any problems. 9. Watching and continue losing weight. Thank you very much for allowing me to participate in the management of your patient. Mervin Connor MD, PhD, FAASM. Diplomat of [employer] Medicine, Sleep Medicine Board by [employer] Medicine Industrial Trainer of [facility] [place]
== END ==
LOC: SLEEP 13:27
PROVIDERS: ATTEND Internal Medicine
DX: G47.33 Obstructive sleep apnea (adult) (pediatric) (principal); E66.9 Obesity, unspecified; Z68.36 Body mass index [BMI] 36.0-36.9, adult; M25.562 Pain in left knee; M54.9 Dorsalgia, unspecified; Z99.89 Dependence on other enabling machines and devices; Z91.018 Allergy to other foods; Z91.040 Latex allergy status; Z88.8 Allergy status to other drugs, medicaments and biological substances; Z87.891 Personal history of nicotine dependence
CPT/HCPCS: 99212

== ENCOUNTER → 2023-09-14 | Outpatient (CLI) | payer MEDICARE ==
--- NOTE | 2023-09-14 14:46 | P.PN ---
Subjective DATE: 09/14/2023 FOLLOW UP VISIT. Patient with obstructive sleep apnea hypopnea syndrome return to sleep center for follow-up visit. Information from previous visit have been reviewed. Patient is using PAP equipment every night for the whole night, getting PAP supplies in time. The patient does not have significant problems with the mask, PAP unit and humidification. [place] sleepiness scale is 7, which is normal. I checked information from PAP unit and explain it to the patient in details. PAP unit pressure 8 cm H2O. Usage is 100 % for more then 4 hours, average 8 hours per night. Leak is 4.4 l/m, which is in acceptable range. Apnea Hypopnea Index is 1.0, which is normal. MEDICATIONS:1.. Flonase 2.. Zyrtec During physical exam: GENERAL: A pleasant patient without any distress. VITAL SIGNS: BP 135/84, HR 76, RR 16, weight 227.2, temperature 97.3, oxygen saturation at room air 98 % . HEENT: PERRLA, EOMI.low position of soft palate, Mallapati 4 . NECK: Supple. No JVD. LUNGS: Clear to percussion and to auscultation. Good air exchange. No wheezing or rhonchi. HEART: S1, S2 regular. ABDOMEN: Soft and nontender. Slightly obese EXTREMITIES: No clubbing or cyanosis. NEONATAL SPECIALIST: Awake, alert, and oriented x3. No focal deficit. Impressions: 1. Obstructive sleep apnea-hypopnea syndrome. Patient demonstrated great compliance with treatment, benefiting from treatment. 2. Mild obesity, patient increased to wait on 15 pounds comparing to previous visit. 3. Back problems. 4. Status post left knee replacement. 5. Status post right hip replacement. Plan: 1. Continue using PAP equipment every night for the whole night. 2. To change air filter at least 1-2 times per month. 3. PAP unit should stay lower then position of the head. 4. Advised patient to remove all remaining water from humidifier canister daily and make it dry after each usage. Refill canister with fresh distilled water before each usage. 5. Sleep hygiene with regular time in bed for at least 8 hours. 6. Precautions related to driving. No driving if feel any sleepiness. 7. I will maintain prescription for PAP supplies including mask, tube, filters. 8. Watching and losing weight. 9. Follow up visit in 6 months or earlier if patient has any problems. Thank you very much for allowing me to participate in the management of your patient. Mervin Connor MD, PhD, FAASM. Diplomat of [place] [employer] Sleep Medicine, Sleep Medicine Board by [place] [employer] of Internal Medicine Rn X Ray of [facility] [place]
== END ==
LOC: 3 N SLEEP 13:50
PROVIDERS: ATTEND Internal Medicine
DX: G47.33 Obstructive sleep apnea (adult) (pediatric) (principal); E66.9 Obesity, unspecified; M51.9 Unspecified thoracic, thoracolumbar and lumbosacral intervertebral disc disorder; Z96.652 Presence of left artificial knee joint; Z96.641 Presence of right artificial hip joint; Z99.89 Dependence on other enabling machines and devices; Z91.018 Allergy to other foods; Z91.040 Latex allergy status; Z88.8 Allergy status to other drugs, medicaments and biological substances; Z87.891 Personal history of nicotine dependence
CPT/HCPCS: 99212

== ENCOUNTER → 2024-04-04 | Outpatient (CLI) | payer MEDICARE ==
[2024-04-04 13:39] VITALS: BP 155/77; PULSE 78; RESP 16; TEMP 98.9
--- NOTE | 2024-04-04 13:52 | P.PROGSL ---
Subjective DATE: 04/04/2024 FOLLOW UP VISIT. Patient with obstructive sleep apnea hypopnea syndrome return to sleep center for follow-up visit. Information from previous visit have been reviewed. Patient is using PAP equipment every night for the whole night, getting PAP supplies in time. The patient does not have significant problems with the mask, PAP unit and humidification. [place] sleepiness scale is 6, which is normal. I checked information from PAP unit. PAP unit pressure 8 cm H2O. Usage is 97% for more then 4 hours, average 9.8 hours per night. Leak is 6.0 l/m, which is in acceptable range. Apnea Hypopnea Index is 2.1, which is normal. MEDICATIONS: Please see below During physical exam: GENERAL: A pleasant patient without any distress. VITAL SIGNS: Please see below, weight 250 pounds, BMI 42.9. HEENT: PERRLA, EOMI.low position of soft palate, Mallapati 4 . NECK: Supple. No JVD. LUNGS: Clear to percussion and to auscultation. Good air exchange. No wheezing or rhonchi. HEART: S1, S2 regular. ABDOMEN: Soft and nontender. Slightly obese EXTREMITIES: No clubbing or cyanosis. ARCHERY EQUIPMENT REPAIRER: Awake, alert, and oriented x3. No focal deficit. Impressions: 1. Obstructive sleep apnea-hypopnea syndrome. Patient demonstrated great compliance with treatment, benefiting from treatment. 2. Obesity, BMI 42.9, patient increased weight on 23 pounds comparing with previous visit. 3. Increasing blood pressure in the office today. 4. Back problems. 5. Status post right hip replacement. 6. Status post left knee replacement. Plan: 1. Continue using PAP equipment every night for the whole night. 2. To change air filter at least 1-2 times per month. 3. PAP unit should stay lower then position of the head. 4. Advised patient to remove all remaining water from humidifier canister daily and make it dry after each usage. Refill canister with fresh distilled water before each usage. 5. Sleep hygiene with regular time in bed for at least 8 hours. 6. Precautions related to driving. No driving if feel any sleepiness. 7. I will maintain prescription for PAP supplies including mask, tube, filters. 8. Follow up visit in 6 months or earlier if patient has any problems. 9. Watching weight. 10. Low-sodium diet, monitoring blood pressure. Thank you very much for allowing me to participate in the management of your patient. Mervin Connor MD, PhD, FAASM. Diplomat of [place] [employer] of Sleep Medicine, Sleep Medicine Board by [employer] of Internal Medicine Wick Tender of [facility] [place] Objective - Vital Signs Vital Signs: Vital Signs Temp 98.9 F 04/04/24 13:38 Pulse 78 04/04/24 13:38 Resp 16 04/04/24 13:38 BP 155/77 04/04/24 13:38 Pulse Ox 96 04/04/24 13:38 FiO2 Intake & Output 04/03/24 04/04/24 04/04/24 18:59 06:59 18:59 Weight 113.398 kg Home Medications: Home Medications Medication Instructions Recorded Confirmed Type Acetaminophen with Codeine 1 tab PO Q4H PRN #20 tab 09/05/17 Rx [Tylenol w/codeine #3] Cholecalciferol [Vitamin D3] 1,000 unit PO DAILY 09/05/17 04/04/24 History Joint Supplement 1 tab PO DAILY 09/05/17 04/04/24 History Lurong Otc 1 tab PO DAILY 09/05/17 09/05/17 History Menthol Sports Rub 1 applic TOPICAL DAILY PRN 09/05/17 09/05/17 History Naproxen [Naprosyn] 500 mg PO Q12HR PRN #30 tab 09/05/17 Rx [place]-3 Fatty Acids [[place]-3] 1,000 mg PO DAILY 09/05/17 04/04/24 History Potassium Plus 1 tab PO DAILY 09/05/17 04/04/24 History Vitamin C/Biotin [Hair, Skin and 1 tab PO DAILY 09/05/17 04/04/24 History Nails] Aspirin 81 mg PO DAILY 04/04/24 04/04/24 History
== END ==
LOC: 3 N SLEEP 13:20
PROVIDERS: ATTEND Internal Medicine
DX: G47.33 Obstructive sleep apnea (adult) (pediatric) (principal); E66.9 Obesity, unspecified; R03.0 Elevated blood-pressure reading, without diagnosis of hypertension; M53.9 Dorsopathy, unspecified; Z96.641 Presence of right artificial hip joint; Z96.652 Presence of left artificial knee joint; Z99.89 Dependence on other enabling machines and devices; Z68.41 Body mass index [BMI] 40.0-44.9, adult; Z88.8 Allergy status to other drugs, medicaments and biological substances; Z91.018 Allergy to other foods; Z91.040 Latex allergy status; Z87.891 Personal history of nicotine dependence
CPT/HCPCS: 99212

== ENCOUNTER → 2024-09-17 | Outpatient (CLI) | payer MEDICARE ==
--- NOTE | 2024-09-17 15:12 | US ---
EXAMINATION TYPE: US pelvis complete transvag DATE OF EXAM: 09/17/2024 COMPARISON: NONE CLINICAL INDICATION: Female, 69 years old with history of R1030 LOWER ABD PAIN; pain TECHNIQUE: Transvaginal (TV) and Transabdominal (TA) . FINDINGS: EXAM MEASUREMENTS: Uterus: 9.3 x 5.5 x 5.2 cm Endometrial Stripe: .5 cm 1. Uterus: Retroverted Heterogenous fibroid uterus largest 3.7 x 4.3 x 4.0 cm. 2. Endometrium: Anechoic area within .4 x .4 x .3 cm. 3. Right Ovary: Obscured by overlying bowel gas 4. Left Ovary: Obscured by overlying bowel gas 5. Bilateral Adnexa: wnl 6. Posterior cul-de-sac: wnl IMPRESSION: Leiomyomatous change of the uterus. [facility], , 09/17/2024 3:10 PM
--- NOTE | 2024-09-18 08:11 | MM ---
Reason for Exam: Screening (asymptomatic). Last mammogram was performed 1 year(s) and 8 month(s) ago. Patient History: Menarche at age 13. First Full-Term at age 16. Postmenopausal. Risk Values: Carrie 5 year model risk: 1.2%. NCI Lifetime model risk: 4.0%. Prior Study Comparison: 01/24/2008 Screening Mammogram, [place]. 01/23/2010 Bilateral Screening Mammogram, [facility]. 07/22/2020 Bilateral Screening Mammogram, Unknown. 02/07/2023 Bilateral Screening Mammogram, Unknown. Tissue Density: There are scattered areas of fibroglandular density. Findings: Analyzed By CAD. There is no suspicious group of microcalcifications or new suspicious mass in either breast. Overall Assessment: Benign, BI-RAD 2 Management: Screening Mammogram of both breasts in 1 year. . Patient should continue monthly self-breast exams. A clinical breast exam by your physician is recommended on an annual basis. This exam should not preclude additional follow-up of suspicious palpable abnormalities. Note on Carrie scores and lifetime risk: 1. A Carrie score greater than 3% is considered moderate risk. If this is the case, consider specialist referral to assess eligibility for a risk reducing agent. 2. If overall lifetime risk for the development of breast cancer is 20% or higher, the patient may qualify for future screening with alternating mammogram and breast MRI. [facility], , 09/18/2024 8:08 AM. Electronically signed and approved by: Huy Simmons M.D. Radiologis
== END | disposition home or self-care (01) ==
LOC: RADUSWWP 14:32
PROVIDERS: ATTEND Family Medicine
DX: Z12.31 Encounter for screening mammogram for malignant neoplasm of breast (principal); R92.333 Mammographic heterogeneous density, bilateral breasts; R10.30 Lower abdominal pain, unspecified; D25.9 Leiomyoma of uterus, unspecified; Z78.0 Asymptomatic menopausal state
CPT/HCPCS: 76830; 76856; 77063; 77067

== ENCOUNTER → 2024-11-01 | Outpatient (CLI) | payer MEDICARE ==
[2024-11-01 13:39] VITALS: BP 165/77; PULSE 82; RESP 16; TEMP 98.3
--- NOTE | 2024-11-01 14:15 | P.PROGSL ---
Subjective DATE: 11/01/2024 FOLLOW UP VISIT. Patient with obstructive sleep apnea hypopnea syndrome return to sleep center for follow-up visit. Information from previous visit have been reviewed. Patient is using PAP equipment every night for the whole night, getting PAP supplies in time. The patient does not have significant problems with the mask, PAP unit and humidification. [place] sleepiness scale is 5, which is normal. I checked information from PAP unit. PAP unit pressure 8 cm H2O. Usage is 100% for more then 4 hours, average 7.5 hours per night. Leak is 7 l/m, which is in acceptable range. Apnea Hypopnea Index is 1.3, which is normal. MEDICATIONS have been reviewed, please see below. During physical exam: GENERAL: A pleasant patient without any distress. VITAL SIGNS: Please see below, weight is 260 lbs. HEENT: PERRLA, EOMI.low position of soft palate, Mallapati 4 . NECK: Supple. No JVD. LUNGS: Clear to percussion and to auscultation. Good air exchange. No wheezing or rhonchi. HEART: S1, S2 regular. ABDOMEN: Soft and nontender.[] EXTREMITIES: No clubbing or cyanosis. ALUMINUM WELDER: Awake, alert, and oriented x3. No focal deficit. Impressions: 1. Obstructive sleep apnea-hypopnea syndrome. Patient demonstrated great compliance with treatment, benefiting from treatment. 2. Back problems. 3. Obesity, BMI 44.6. 4. Status post bilateral hip replacement. Plan: 1. Continue using PAP equipment every night for the whole night. 2. Sleep hygiene with regular time in bed for at least 7.5-8 hours 3. PAP unit should stay lower then position of the head. 4. Advised patient to remove all remaining water from humidifier canister daily and make it dry after each usage. Refill canister with fresh distilled water before each usage. 5. Watching and losing weight. 6. Precautions related to driving. No driving if feel any sleepiness. 7. I will maintain prescription for PAP supplies including mask, tube, filters. 8. Follow up visit in 8 months or earlier if patient has any problems. Thank you very much for allowing me to participate in the management of your patient. Mervin Connor MD, PhD, FAASM. Diplomat of [employer] Board [employer] Sleep Medicine, Sleep Medicine Board by [employer] Board of Internal Medicine Regulatory Intern of [facility] [employer] Objective - Vital Signs Vital Signs: Vital Signs Temp 98.3 F 11/01/24 13:30 Pulse 82 11/01/24 13:30 Resp 16 11/01/24 13:30 BP 165/77 11/01/24 13:30 Pulse Ox 95 11/01/24 13:30 FiO2 Intake & Output 10/31/24 11/01/24 11/01/24 18:59 06:59 18:59 Weight 117.934 kg Home Medications: Home Medications Medication Instructions Recorded Confirmed Type Acetaminophen with Codeine 1 tab PO Q4H PRN #20 tab 09/05/17 Rx [Tylenol w/codeine #3] Cholecalciferol [Vitamin D3] 1,000 unit PO DAILY 09/05/17 04/04/24 History Joint Supplement 1 tab PO DAILY 09/05/17 04/04/24 History Lurong Otc 1 tab PO DAILY 09/05/17 09/05/17 History Menthol Sports Rub 1 applic TOPICAL DAILY PRN 09/05/17 09/05/17 History Naproxen [Naprosyn] 500 mg PO Q12HR PRN #30 tab 09/05/17 Rx [place]-3 Fatty Acids [[place]-3] 1,000 mg PO DAILY 09/05/17 04/04/24 History Potassium Plus 1 tab PO DAILY 09/05/17 04/04/24 History Vitamin C/Biotin [Hair, Skin and 1 tab PO DAILY 09/05/17 04/04/24 History Nails] Aspirin 81 mg PO DAILY 04/04/24 04/04/24 History metFORMIN HCL 500 mg PO DAILY 11/01/24 11/01/24 History
== END ==
LOC: 3 N SLEEP 13:19
PROVIDERS: ATTEND Internal Medicine
DX: G47.33 Obstructive sleep apnea (adult) (pediatric) (principal); M53.9 Dorsopathy, unspecified; E66.9 Obesity, unspecified; Z99.89 Dependence on other enabling machines and devices; Z68.41 Body mass index [BMI] 40.0-44.9, adult; Z96.643 Presence of artificial hip joint, bilateral; Z88.8 Allergy status to other drugs, medicaments and biological substances; Z91.018 Allergy to other foods; Z91.040 Latex allergy status; Z87.891 Personal history of nicotine dependence
CPT/HCPCS: 99212